=== PATIENT | female | born 1980 | race Two or more races ===

== ENCOUNTER 2018-02-28 22:32 | Inpatient (IN) | payer MEDICAID ==
[~2018-02-28] VITALS: Ht 157.5 cm; Wt 56.7 kg
--- NOTE | 2018-02-28 22:44 | NUR ---
PT BB SEFL FROM HOME C/O OF SHARP/BURNING ABD PAIN 6/10 X3 HOURS. +N, -V/D. - DYSURIA. SKIN WNL. PT IS AAOX4. RESP EVEN AND UNLABORED. NO S/S OF ACUTE DISTRESS NOTED. VSS. PT SAFETY AND COMFORT MEASURES IN PLACE. PT PLACED IN GOWN AND ON MONITOR AND POX. AWAITING MD FOR EVAL.
[2018-02-28] MEDS ORDERED: IV NS 0.9% 1,000 ML BAG IV ONE (23:00)
[2018-02-28] MEDS ORDERED: ONDANSETRON HCL/PF 4 MG/2 ML VIAL IVP ONE (23:00)
[2018-02-28] MEDS ORDERED: MORPHINE SULFATE INJ 2 MG/ML DISP.SYRIN IV ONE (23:00)
[2018-02-28] MEDS ORDERED: ONDANSETRON HCL/PF 4 MG/2 ML VIAL ONE (23:01)
[2018-02-28] MEDS ORDERED: MORPHINE SULFATE INJ 4 MG/ML DISP.SYRIN ONE (23:02)
[2018-02-28 23:06] LABS: BASOPHILS # (AUTO) 0.1 /CMM (0.0-0.2); BASOPHILS % (AUTO) 0.3 % (0.0-2.0); EOSINOPHILS % (AUTO) 0.3 % (0.0-6.0); HEMATOCRIT 41 % (33-45); HEMOGLOBIN 13.7 g/dL (11.5-14.8); LYMPHOCYTES % (AUTO) 12.4 % (20.0-44.0); MEAN CORPUSCULAR HGB CONC 34 g/dl (31.0-36.0); MEAN CORPUSCULAR VOLUME 85 fL (82-100); MONOCYTES # (AUTO) 0.8 /CMM (0.1-1.30); MONOCYTES % (AUTO) 4.8 % (2.0-12.0); NEUTROPHILS # (AUTO) 13.5 /CMM (1.8-8.9); NEUTROPHILS % (AUTO) 82.2 % (43.0-81.0); PLATELET COUNT (AUTO) 241 /CMM (150-450); RDW COEFFICIENT OF VARIATION 12.4 (11.5-15.0); RED BLOOD CELL COUNT(AUTO) 4.78 MIL/uL (4.0-5.2); WHITE BLOOD COUNT (AUTO) 16.4 K/uL (4.3-11.0)
[2018-02-28 23:09] LABS: APPEARANCE,URINE CLEAR (CLEAR); BILIRUBIN,URINE NEGATIVE (NEGATIVE); BLOOD, URINE TRACE-INTA Ery/uL (NEGATIVE); COLOR,URINE YELLOW (YELLOW); KETONES,URINE 1+ (NEGATIVE); LEUKOCYTE ESTERASE ,URINE 1+ (NEGATIVE); NITRITE, URINE NEGATIVE (NEGATIVE); PROTEIN,URINE NEGATIVE (NEGATIVE); UGLUCOSE NEGATIVE (NEGATIVE); UROBILINOGEN,URINE 0.2 EU/dL (0.2)
[2018-02-28 23:17] LABS: BACTERIA,URINE 2+ /HPF (None Seen); MUCUS,URINE Moderate /LPF (None Seen); SQUAMOUS EPITHELIAL CELL,UR Moderate /HPF (None Seen)
[2018-02-28 23:23] LABS: TROPONIN I < 0.017 ng/mL (0.00-0.056)
[2018-02-28 23:25] LABS: CALCIUM, SERUM 9.2 mg/dL (8.5-10.1); CARBON DIOXIDE 26 mmol/L (21-32); CHLORIDE 97 mmol/L (98-107); CREATININE 0.8 mg/dL (0.6-1.3); GLUCOSE 191 mg/dL (74-106); POTASSIUM 3.3 mmol/L (3.5-5.1); SODIUM SERUM 133 mmol/L (136-145); UREA NITROGEN, BLOOD 6 mg/dL (7-18)
[2018-02-28 23:28] LABS: ALANINE AMINOTRANSFERASE 60 U/L (12-78); ALBUMIN 4.7 g/dL (3.4-5.0); ALKALINE PHOSPHATASE 59 U/L (46-116); ASPARTATE AMINOTRANSFERASE 113 U/L (15-37); BILIRUBIN,DIRECT 0.3 mg/dL (0.0-0.2); BILIRUBIN,TOTAL 0.5 mg/dL (0.2-1.0); LIPASE 1018 U/L (73-393); TOTAL PROTEIN, SERUM 9.3 g/dL (6.4-8.2)
--- NOTE | 2018-02-28 23:30 | NUR ---
assistant professor surgical technology bedside
--- NOTE | 2018-02-28 23:55 | NUR ---
MS 204-1
[2018-03-01] MEDS ORDERED: CEFTRIAXONE 1GM BAG (ER ONLY) 1 GM/50 ML PIGGYBACK IV ONE
--- NOTE | 2018-03-01 00:06 | NUR ---
PT STATES SHE IS FEELING ITCHY AND MIGHT BE HAVING A "ALLERGIC" REACTION. MADE AWARE.
[2018-03-01] MEDS ORDERED: diphenhydrAMINE HCL 50 MG/ML VIAL ONE (00:13)
[2018-03-01] MEDS ORDERED: CEFTRIAXONE 1GM BAG (ER ONLY) 50 ML IV ONE (00:13)
--- NOTE | 2018-03-01 00:15 | NUR ---
PT MEDICATED PER MD'S ORDERS.
[2018-03-01] MEDS ORDERED: diphenhydrAMINE HCL 50 MG/ML VIAL IV ONE (00:30)
--- NOTE | 2018-03-01 00:47 | NUR ---
REPORT GIVEN TO MARAIJOSE FRANCE FOR JEANE.
--- NOTE | 2018-03-01 01:00 | NUR ---
RECEIVED PATIENT FROM ER FOR DX ACUTE PANCREATITIS. AO X 4, ABLE TO MAKE NEEDS KNOWN. NO ACUTE DISTRESS NOTED. DENIES ANY PAIN AT THIS TIME. SKIN INTACT. IV SITE PATENT, INTACT; FLUSHED. SAFETY REMINDERS GIVEN. GIVEN ORIENTATION TO ROOM AND UNIT. ON LOW BED WITH BILATERAL UPPER SIDE RAILS UP. CALL YOON WITHIN EASY REACH. WILL CONTINUE TO MONITOR.
[2018-03-01 01:05] VITALS: BP 115/70
[2018-03-01] MEDS ORDERED: MAGNESIUM HYDROXIDE 30 ML UDC PO PRN (01:30)
[2018-03-01] MEDS ORDERED: ONDANSETRON HCL/PF 4 MG/2 ML VIAL IVP PRN (01:30)
[2018-03-01] MEDS ORDERED: Z GUARD REMEDY 2 OZ OINT TP PRN (01:30)
[2018-03-01] MEDS ORDERED: ACETAMINOPHEN 325 MG TABLET PO PRN (01:30)
[2018-03-01] MEDS ORDERED: ZOLPIDEM TARTRATE 5 MG TABLET PO PRN (01:30)
[2018-03-01] MEDS ORDERED: HYDROCODONE/APAP 5/325MG 1 EACH TABLET PO PRN (01:30)
[2018-03-01] MEDS: PANTOPRAZOLE 40 MG VIAL IV SCH (02:29)
[2018-03-01] MEDS: IV NS 0.9% 1,000 ML IV PRN ×3 (02:30→23:14)
[2018-03-01 05:08] LABS: BASOPHILS % (AUTO) 0.3 % (0.0-2.0); HEMATOCRIT 35 % (33-45); LYMPHOCYTES # (AUTO) 1.2 /CMM (0.8-4.8); LYMPHOCYTES % (AUTO) 14.5 % (20.0-44.0); MEAN CORPUSCULAR HGB CONC 34 g/dl (31.0-36.0); MEAN CORPUSCULAR VOLUME 86 fL (82-100); MONOCYTES # (AUTO) 0.5 /CMM (0.1-1.30); MONOCYTES % (AUTO) 6.2 % (2.0-12.0); NEUTROPHILS # (AUTO) 6.8 /CMM (1.8-8.9); PLATELET COUNT (AUTO) 182 /CMM (150-450); RDW COEFFICIENT OF VARIATION 12.7 (11.5-15.0); RED BLOOD CELL COUNT(AUTO) 4.06 MIL/uL (4.0-5.2); WHITE BLOOD COUNT (AUTO) 8.6 K/uL (4.3-11.0)
[2018-03-01 05:40] LABS: CALCIUM, SERUM 8.6 mg/dL (8.5-10.1); CREATININE 0.7 mg/dL (0.6-1.3); POTASSIUM 4.4 mmol/L (3.5-5.1)
--- NOTE | 2018-03-01 06:30 | NUR ---
PATIENT ASLEEP, EASILY AROUSABLE. RESPIRATIONS EVEN. NO SIGNS OF PAIN NOTED. IVF INFUSING ORDERED. PATIENT KEPT NPO. NEEDS ATTENDED. KEPT CLEAN, DRY, AND COMFORTABLE. SAFETY PRECAUTIONS AND COMFORT MEASURES IN PLACE. WILL GIVE REPORT TO DAY SHIFT FOR CONTINUITY OF CARE.
--- NOTE | 2018-03-01 07:29 | NUR ---
M/S RN - Assessment Patient in bed awake, A/O x 4, abdominal pain controlled, denies n/v, abdomen soft, afebrile, no apparent distress seen. Labs reviewed lipase level today 324, improved. Patient currently NPO, on IVF NS at 100 ml/hr infusing well on the LAC with no signs of infiltration. All needs attended and met. Patient updated on treatment plan. Will continue with current medical management.
[2018-03-01 08:16] VITALS: BP 97/50
--- NOTE | 2018-03-01 13:00 | NUR ---
M/S RN - Notes Patient states feeling better, denies n/v, abdominal pain well controlled. Continue IVF to maintain hydration, still on NPO. Will continue to monitor closely.
[2018-03-01 16:00] VITALS: BP 103/79
--- NOTE | 2018-03-01 17:15 | NUR ---
M/S RN - Orders Dr. Markos Bardales at bedside evaluating the patient, with verbal orders to obtain consent for Laparoscopic Cholecystectomy with Dr. Rodriguez, start vegan diet for dinner, then NPO after midnight. Orders noted and carried out.
--- NOTE | 2018-03-01 17:30 | NUR ---
M/S RN - Consent Patient signed consent for Laparoscopic Cholecystectomy, anesthesia, and blood. Patient aware of the risk and benefits of the surgery as explained by Md.
--- NOTE | 2018-03-01 18:24 | NUR ---
M/S RN - Notes Patient remain afebrile, c/o mild abdominal pain but refused to be medicated, denies n/v, able to tolerate vegan diet. Patient made aware that she needs to be NPO after midnight for surgery tomorrow at 06:00. Continue IVF to maintain hydration and Rocephin for UTI. All needs anticipated and met. Will continue with current treatment plan.
--- NOTE | 2018-03-01 19:15 | NUR ---
MS RN NOTES RECEIVED PT IN BED, AWAKE, A/O X 4, VERBALLY RESPONSIVE. NO DISTRESS, NO SOB AT THIS TIME, DENIES ANY PAIN OR DISCOMFORT. PT WILL BE ON NPO STARTING MIDNIGHT FOR LAP LATONYA TOMORROW MORNING, EDUCATION PROVIDED, VERBALIZED UNDERSTANDING. SAFETY PRECAUTIONS OBSERVED. ALL NEEDS ATTENDED AND MET. KEPT COMFORTABLE. CALL LIGHT WITHIN REACH. WILL CONT TO MONITOR.
[2018-03-01 20:00] VITALS: BP 99/60
--- NOTE | 2018-03-01 20:49 | NUR ---
Met with patient, she is very pleasant. She lives locally with a roomate. She is ambulatory and independent with adl's. Denies any dc planning needs at this time. Addendum: 03/01/18 at 2049 by BHAVNA VELAZQUEZ RN Amended: Links added.
[2018-03-01] MEDS ORDERED: CEFTRIAXONE 1 G in IV D5W 50 ML IV SCH (23:00)
[2018-03-02] VITALS (8 sets, daily range): BP systolic 102–118; BP diastolic 65–74
[2018-03-02] MEDS: PANTOPRAZOLE 40 MG VIAL IV SCH (01:19)
[2018-03-02 06:31] LABS: BASOPHILS % (AUTO) 0.3 % (0.0-2.0); EOSINOPHILS % (AUTO) 1.9 % (0.0-6.0); HEMATOCRIT 37 % (33-45); HEMOGLOBIN 12.6 g/dL (11.5-14.8); LYMPHOCYTES # (AUTO) 2.7 /CMM (0.8-4.8); LYMPHOCYTES % (AUTO) 40.2 % (20.0-44.0); MEAN CORPUSCULAR HGB CONC 34 g/dl (31.0-36.0); MEAN CORPUSCULAR VOLUME 86 fL (82-100); MONOCYTES # (AUTO) 0.5 /CMM (0.1-1.30); MONOCYTES % (AUTO) 7.6 % (2.0-12.0); NEUTROPHILS # (AUTO) 3.4 /CMM (1.8-8.9); PLATELET COUNT (AUTO) 210 /CMM (150-450); RDW COEFFICIENT OF VARIATION 12.9 (11.5-15.0); RED BLOOD CELL COUNT(AUTO) 4.33 MIL/uL (4.0-5.2); WHITE BLOOD COUNT (AUTO) 6.8 K/uL (4.3-11.0)
--- NOTE | 2018-03-02 06:35 | NUR ---
MS WARREN NOTES RECEIVED PT IN BED, WATCHING TV AT THIS TIME, A/O X 4, VERBALLY RESPONSIVE. NO DISTRESS, NO SOB AT THIS TIME, DENIES ANY PAIN OR DISCOMFORT. ALL DUE MEDS GIVEN . PT IS AMBULATORY . PT ON NPO STARTING MIDNIGHT. FOR SURGERY THIS MORNING. SAFETY PRECAUTIONS OBSERVED. ALL NEEDS ATTENDED AND MET. KEPT COMFORTABLE. CALL LIGHT WITHIN REACH. WILL ENDORSE TO NEXT SHIFT FOR JEANE. Addendum: 03/02/18 at 0640 by ELTON BATEMAN RN INCORRECT DOCUMENTATION.
--- NOTE | 2018-03-02 06:40 | NUR ---
MS RN NOTES PT IN BED, WATCHING TV AT THIS TIME, A/O X 4, VERBALLY RESPONSIVE. NO DISTRESS, NO SOB AT THIS TIME, DENIES ANY PAIN OR DISCOMFORT. ALL DUE MEDS GIVEN . PT IS AMBULATORY . PT ON NPO STARTING MIDNIGHT. FOR SURGERY THIS MORNING. SAFETY PRECAUTIONS OBSERVED. ALL NEEDS ATTENDED AND MET. KEPT COMFORTABLE. CALL LIGHT WITHIN REACH. WILL ENDORSE TO NEXT SHIFT FOR JEANE.
[2018-03-02 06:51] LABS: ALBUMIN 3.7 g/dL (3.4-5.0); BILIRUBIN,TOTAL 0.5 mg/dL (0.2-1.0); CALCIUM, SERUM 8.4 mg/dL (8.5-10.1); CREATININE 0.8 mg/dL (0.6-1.3); PHOSPHORUS 3.2 mg/dL (2.5-4.9); POTASSIUM 3.4 mmol/L (3.5-5.1); TOTAL PROTEIN, SERUM 7.7 g/dL (6.4-8.2)
[2018-03-02] MEDS ORDERED: BUPIVACAINE 0.25% 75 MG/30 ML VIAL ONE (07:04)
[2018-03-02 07:08] LABS: INR 0.99 (0.87-1.13)
--- NOTE | 2018-03-02 07:16 | NUR ---
PT'S BELONGINGS GIVEN TO NURSING HONEYCOMB BLANKET MAKER ANTON AND PLACED INSIDE THE SAFE. HOW EVER PT'S CELLPHONE, WITH THE PT AT THIS TIME, PT IS GOING TO SURGERY , ENDORSED TO EDD ACCORDINGLY.
--- NOTE | 2018-03-02 07:30 | NUR ---
AM RN NOTE Received patient awake, A/O X4 verbally responsive. Denies any pain at this time. Pt on NPO status for laparoscopic cholecystectomy this am. IV site intact and patent. Bed in low locked position. Will continue to monitor.
--- NOTE | 2018-03-02 07:45 | NUR ---
AM RN NOTE Pt awake, left for procedure at this time as accompanied by OR staff.
[2018-03-02] MEDS ORDERED: ROCURONIUM BROMIDE 50 MG/5 ML ONE (08:14)
[2018-03-02] MEDS ORDERED: MIDAZOLAM HCL 2 MG/2ML VIAL ONE (08:14)
[2018-03-02] MEDS ORDERED: SUCCINYLCHOLINE CHLORIDE 20 MG/ML VIAL ONE (08:14)
[2018-03-02] MEDS ORDERED: MORPHINE SULFATE INJ 4 MG/ML DISP.SYRIN ONE (09:21)
--- NOTE | 2018-03-02 10:05 | NUR ---
AM RN NOTE Patient awake, A/O X4 came back from OR as accompanied by OR staff. V/S BP108/74 T97.9 P58 R20 PA2/10 O2 sat 98% at RA. 3 Incisions on abdominal area covered with 3 dressings, intact no discharge noted at this time. New med orders faxed to pharmacy by Tate WARREN and other orders noted and carried out. Will continue to monitor pt closely. Call light with in easy reach. Bed in low locked position.
[2018-03-02] MEDS: oxyCODONE/APAP (5/325 MG) 1 UDTAB TABLET PO PRN ×2 (11:13→21:40)
[2018-03-02] MEDS: IV D5/0.45 NACL W/20 MEQ KCL 1L IV PRN ×2 (13:38)
--- NOTE | 2018-03-02 14:52 | NUR ---
AM RN NOTE Pt awake, no acute distress noted. Care endorsed to Lv WARREN.
--- NOTE | 2018-03-02 14:55 | NUR ---
PASTRY WRAPPER NOTES RECEIVED PATIENT FROM [facility]RI[facility] PUGA. PATIENT IN STABLE CONDITION, A/OX4, ABLE TO MAKE NEEDS KNOWN. S/P LAPCHOLE, 3 SURGICAL INCISIONS ON ABDOMINAL AREA COVERED WITH DRESSINGS INTACT, CLEAN AND DRY. NO ACUTE DISTRESS, NO SOB. PAIN IS TOLERABLE AT THE MOMENT PER PATIENT, OFFERED PAIN MEDICATIONS PRN. KEPT PATIENT SAFE AND COMFORTABLE. BED IN LOW/LOCKED POSITION, SIDERAILS UPX2, CALL LIGHT IN REACH. WILL CONTINUE TO MONITOR ACCORDINGLY.
[2018-03-02] MEDS: ANCEF 1 GM/50 ML D5W IV SCH ×2 (16:20)
--- NOTE | 2018-03-02 19:26 | NUR ---
RN CLOSING NOTES PATIENT IN STABLE CONDITION. ALL NEEDS ATTENDED AND PROVIDED. KEPT PATIENT SAFE AND COMFORTABLE. BEDIN LOW/LOCKED POSITION, SIDERAILS UPX2, CALL LIGHT IN REACH. ENDORSED TO NIGHT RN FOR JEANE.
--- NOTE | 2018-03-02 19:30 | NUR ---
RN INITIAL NOTES: RECEIVED REPORT FROM RICHIE WARREN, PT IN BED, A/O X4, ON RA, RESPIRATION EVEN AND UNLABORED, S/ LAP LATONYA TODAY IN THE AFTERNOON WITH DR STORM. ABDOMEN SOFT TO TOUCH, ACTIVE BOWEL SOUND HEARD UPON AUSCULTATION, BLOATED, PT CLAIMED SHE'S UNABLE TO PASS GAS, ADVISED PT TO AMBULATE IF TOLERATED TO HELP PASS THE GAS AND TO PROMOTE PERISTALTIC MOVEMENT IN THE INTESTINES. PT USES WALKER. IV ACCESS PATENT AND FLUSHING WELL, INFUSING WITH D5 1/2 NS WITH 20MEQ KCL AT 75ML/HR. PT DIET PLACED BACK TO LIQUID DIET, SHE DOESN'T WANT SOFT DIET SHE STATED ITS TOO HEAVY FOR HER STOMACH. AGREE WITH THE PT SINCE SHE JUST HAD SURGERY, PT NEEDS TO BE IN LIQUID DIET, MONITOR PT IF SHE WILL TOLERATE IT THEN ADVANCED NEEDED, BASED ON PT'S PROGRESSED. PT GIVEN JELL O AND HOT TEA. PLAN OF CARE FOR TONIGHT DISCUSSED WITH THE P[T, PT AGREED, AND UNDERSTAND. SAFETY PRECAUTIONS FOR FALL INITIATED, CALL LIGHT IN REACH, WILL CONTINUE TO MONITOR.
--- NOTE | 2018-03-02 21:15 | NUR ---
rn notes: spoked with brand engineer employee relations director regarding pt's comlain of unable to expel gas, pt s/p rosa white today 03/02/18 came to the unit at 0300pm, tolerating po intake and diet well, ambulating around the hallway to expel gas, but unable to do so, active bowel sound heard upon auscultation, per brand engineer to give simethicone 80mg tab chewable qid prn
[2018-03-02] MEDS ORDERED: SIMETHICONE 80 MG TAB.CHEW PO PRN (21:30)
--- NOTE | 2018-03-02 21:41 | NUR ---
prn percocet: pt c/o 05/24 abdominal pain, requesting for pain medication, offered morphine or percocet, pt choose percocet, prn percocet administered to the pt at this time, will continue monitoring / reassessing for pain
--- NOTE | 2018-03-02 22:04 | NUR ---
prn simethicone: pt c/o gas pain, requesting for simethicone, prn simethicone chew tab administered at this time.
[2018-03-03] MEDS: ANCEF 1 GM/50 ML D5W IV SCH ×4 (00:14→09:44)
[2018-03-03] MEDS: MORPHINE SULFATE INJ 4 MG/ML DISP.SYRIN IV PRN ×2 (00:14→11:03)
--- NOTE | 2018-03-03 00:14 | NUR ---
PRN MORPHINE: PT C/O 05/24 PAIN IN THE ABDOMEN, REQUESTING FOR PAI9N MEDICATION. PERCOCET STILL NOT DUE, GIVEN 2HRS AGO, PT REQUESTED OPTED FOR MORPHINE. PRN MORPHINE 2MG IVP ADMINISTERED TO THE PT AT THIS TIME, WILL CONTINUE TO MONITOR AND REASSESS PAIN LEVEL
--- NOTE | 2018-03-03 02:00 | NUR ---
RN NOTES: ABDOMEN SOFT TO TOUCH, HYPO ACTIVE BOWEL SOUND HEARD UPON AUSCULTATION OF THE ABDOMEN, PT STILL NOT ABLE TO PASS GAS, PRESALES CONSULTANT AWARE
[2018-03-03] MEDS: PANTOPRAZOLE 40 MG VIAL IV SCH (02:15)
--- NOTE | 2018-03-03 04:00 | NUR ---
RN NOTES: PT BEEN AMBULATING AROUND THE HALLWAY, STILL UNABLE TO PASS GAS, ABDOMEN IS SOFT TO TOUCH WITH HYPO ACTIVE BOWEL SOUND HEARD UPON AUSCULTATION
--- NOTE | 2018-03-03 05:17 | NUR ---
RN NOTES: OFFERED WARM PRUNE JUICE TO HELP RELIEVE GAS PAIN AND MOVE BOWELS, PT ALSO ABLE TO WALK AROUND THE HALLWAY , TO HELP PASS GAS, OFFERED PAIN MEDICATION, PT STATED PAIN IS TOERABLE, AND THAT ITS THE GAS PAIN THAT'S BOTHERING HER.
[2018-03-03] MEDS: IV D5/0.45 NACL W/20 MEQ KCL 1L IV PRN ×2 (06:08)
--- NOTE | 2018-03-03 06:20 | NUR ---
RN NOTES: PT APPROACHED RN AND STATED SHE'S FINALLY ABLE TO PASS GAS. PT IS HAPPY, AND REQUESTING FOR MORE WARM PRUNE JUICE.
[2018-03-03 06:43] LABS: BASOPHILS % (AUTO) 0.2 % (0.0-2.0); EOSINOPHILS % (AUTO) 0.5 % (0.0-6.0); HEMATOCRIT 37 % (33-45); HEMOGLOBIN 12.6 g/dL (11.5-14.8); LYMPHOCYTES # (AUTO) 2.1 /CMM (0.8-4.8); LYMPHOCYTES % (AUTO) 21.1 % (20.0-44.0); MEAN CORPUSCULAR HGB CONC 34 g/dl (31.0-36.0); MEAN CORPUSCULAR VOLUME 87 fL (82-100); MONOCYTES # (AUTO) 0.9 /CMM (0.1-1.30); MONOCYTES % (AUTO) 8.8 % (2.0-12.0); NEUTROPHILS % (AUTO) 69.4 % (43.0-81.0); PLATELET COUNT (AUTO) 226 /CMM (150-450); RDW COEFFICIENT OF VARIATION 12.8 (11.5-15.0); RED BLOOD CELL COUNT(AUTO) 4.29 MIL/uL (4.0-5.2)
--- NOTE | 2018-03-03 06:47 | NUR ---
RN CLOSING NOTES: PT IN BED, REMAINS ON RA. IV ACCESS REMAINS PATENT AND FLUSHING WELL, INFUSING WITH D5 1/2 NS WITH 20MEQ KCL AT 75ML/HR. PT BEEN AMBULATING AROUND ROOM AND HALLWAY, HYPOACTIVE BOWEL SOUND NOTED UPON AUSCULTATION OF THE PT'S ABDOMEN. ABDOMEN SOFT TO TOUCH. ABLE TO PASS GAS. VS REMAINS STABLE, NEEDS ATTENDED. SAFETY PRECAUTIONS FOR FALL REMAINS ENGAGED, CALL LIGHT IN REACH. WILL ENDORSE TO DAY RN FOR JEANE.
[2018-03-03 07:05] LABS: ALBUMIN 3.9 g/dL (3.4-5.0); BILIRUBIN,TOTAL 0.5 mg/dL (0.2-1.0); CALCIUM, SERUM 8.9 mg/dL (8.5-10.1); CREATININE 0.9 mg/dL (0.6-1.3); POTASSIUM 3.6 mmol/L (3.5-5.1); TOTAL PROTEIN, SERUM 8.2 g/dL (6.4-8.2)
--- NOTE | 2018-03-03 07:15 | NUR ---
RN OPENING NOTES PATIENT IN BED RESTING, A/OX3. NO ACUTE DISTRESS, NO SOB NOTED. OFFERED PAIN MEDS, PER PATIENT, PAIN WAS TOLERABLE AT THE MOMENT, WILL NOTIFY NURSE FOR PAIN MANAGEMENT. IV SITE INTACT AND PATENT. KEPT PATIENT SAFE AND COMFORTABLE. BED IN LOW/LOCKED POSITION, SIDERAILS UPX2, CALL LIGHT IN REACH. WILL CONTINUE TO MONITOR ACCORDINGLY
[2018-03-03 08:00] VITALS: BP 108/69
[2018-03-03] MEDS ORDERED: CEPH-570 PO (10:13)
[2018-03-03] MEDS ORDERED: HYDR-552 PO (10:13)
--- NOTE | 2018-03-03 13:00 | NUR ---
RN NOTES PATIENT TOLERATED LUNCH MEAL. NO NAUSEA, NO VOMITING, NO DISCOMFORTS.
[2018-03-03 15:00] VITALS: BP 103/65
--- NOTE | 2018-03-03 15:40 | NUR ---
DOUGHNUT MAKER NOTES DISCHARGED PATIENT IN STABLE CONDITION ACCOMPANIED BY FRIEND AND RN RICHIE. DISCHARGE INSTRUCTIONS GIVEN, VERBALIZED UNDERSTANDING, D/C PAPERWORK GIVEN. ALL BELONGINGS RETURNED,FORM SIGNED. D/C PIV, APPLIED PRESSURE, NO BLEEDING, NO COMPLICATIONS. NAME BAND REMOVED.
== END 2018-03-03 15:40 | disposition home or self-care (01) | DRG 263 ==
LOC: ER 22:37 → MEDSG2 03-01 00:42 → MED 03-02 06:19
PROVIDERS: ADMIT Nurse Practitioner Acute Care; ATTEND Nurse Practitioner Acute Care
PROC: 0FT44ZZ Resection of Gallbladder, Percutaneous Endoscopic Approach (ICD-10-PCS; principal; 2018-03-02 08:00)
DX: K85.10 Biliary acute pancreatitis without necrosis or infection (principal); K80.62 Calculus of gallbladder and bile duct with acute cholecystitis without obstruction; E11.65 Type 2 diabetes mellitus with hyperglycemia; E87.1 Hypo-osmolality and hyponatremia; D72.829 Elevated white blood cell count, unspecified; K80.20 Calculus of gallbladder without cholecystitis without obstruction; E87.6 Hypokalemia; K86.1 Other chronic pancreatitis; N39.0 Urinary tract infection, site not specified; R74.0 Nonspecific elevation of levels of transaminase and lactic acid dehydrogenase [LDH]; E86.1 Hypovolemia; F43.9 Reaction to severe stress, unspecified
CPT/HCPCS: 36415; 76705-TC; 80048-TC; 80053-TC; 80061-TC; 80076-TC; 81000-TC; 83690-TC; 83735-TC; 84100-TC; 84484-TC; 84703-TC; 85025-TC; 85610-TC; 85730-TC; 86850-TC; 87081-TC; 87086-TC; 88304-TC; 88305-TC; A4606; C9113; J0330; J0690; J0696; J1100; J1200; J1885; J2250; J2270; J2405; J2704; J2710; J3480; J3490; J7030; J7060; Z7610